=== PATIENT | female | born 1980 | race Caucasian/White ===

== ENCOUNTER 2018-01-13 22:55 | Emergency (ER) | payer OTHER ==
[~2018-01-13] VITALS: Ht 162.6 cm; Wt 88.9 kg
[~2018-01-13 22:55] MED LIST: DIAZ2 PO; NORC7.5T PO; ORPH100T PO
[2018-01-13 23:02] VITALS: BP 137/62; PULSE 115; RESP 18; TEMP 100.5; O2SAT 93
--- NOTE | 2018-01-14 00:40 | PD ---
HPI Chief Complaint: Cold / Flu Symptoms Time Seen by Provider: 00:33 Travel History International Travel<30 days: No Contact w/Intl Traveler<30days: No Traveled to known affect area: No History of Present Illness HPI The patient is a 37-year-old female that complains of fever and congestion, sore throat, cough, global headache, myalgias since afternoon, over 2 days. Her main complaints are now the headache and the cough. The myalgias are slightly subsiding. She has had a fever at home but never took her temperature. Her temperature here is 100.5. She does not smoke. She teaches school at [employer] Past Medical History Diminished Hearing: No Tetanus Vaccination: Unknown Influenza Vaccination: No ?: Not Past Surgical History Oral Surgery: Yes (WISDOM TEETH) Social History Alcohol Use: Yes (OCC) Tobacco Use: No Substance Use: No Allergies-Medications (Allergen,Severity, Reaction): Coded Allergies: No Known Allergies (Unverified , 10/07/15) Reported Meds & Prescriptions Reported Meds & Active Scripts Active No Active Prescriptions or Reported Medications Review of Systems Except as stated in HPI: all other systems reviewed are Neg Physical Exam Narrative GENERAL: Well-nourished, well-developed patient in no respiratory distress. Her vital signs show temperature 100.5 with heart rate of 115 but the rest of the vital signs are normal. SKIN: Focused skin assessment warm/dry. HEAD: Normocephalic. EYES: No scleral icterus. No injection or drainage. NECK: Supple, trachea midline. No JVD or lymphadenopathy. CARDIOVASCULAR: Regular rate and rhythm without murmurs, gallops, or rubs. RESPIRATORY: Breath sounds equal bilaterally. No accessory muscle use. Lungs clear to auscultation bilaterally. GASTROINTESTINAL: Abdomen soft, non-tender, nondistended. MUSCULOSKELETAL: No cyanosis, or edema. BACK: Nontender without obvious deformity. No CVA tenderness. ENT: The tympanic membranes are clear and the throat shows no erythema, exudate nor abscess. Data Data Last Documented VS Vital Signs Date Time Temp Pulse Resp B/P (MAP) Pulse Ox O2 Delivery O2 Flow Rate FiO2 01/13/18 23:29 18 98 Room Air 01/13/18 23:02 100.5 115 137/62 (87) Orders Orders Influenzae A/B Antigen (01/14/18 00:34) [facility] Medical Decision Making Medical Screen Exam Complete: Yes Emergency Medical Condition: Yes Medical Record Reviewed: Yes Interpretation(s) The influenza A/B antigen is negative for flu a and flu B antigen. Differential Diagnosis Flu syndrome, nonspecific viral syndrome, strep pharyngitis, otitis media, pneumonia, bronchitis Narrative Course The patient appears to have a nonspecific viral syndrome. Her sore throat is resolving and the throat appears normal at this time. This is unlikely to be strep. There is no otitis media and her lungs are clear. Impression: Nonspecific viral syndrome Plan: The patient be given codeine-containing cough syrup as well as Percocet for her headache. She should not drink alcohol or drive on the Percocet. She is given a 5 day work excuse. She needs to increase her liquid intake. Diagnosis Primary Impression: Viral syndrome Additional Instructions: Continue to increase your liquid intake to make sure you stay well-hydrated. Do not drink alcohol or drive on the Percocet 5 or codeine-containing cough syrup. Follow-up next week with your primary care physician. Med/Other Pt SpecificInfo: Prescription(s) given Scripts Ibuprofen (Ibuprofen) 600 Mg Tab 600 MG PO TID, #33 TAB 0 Refills Prov: Danyel Lehman MD 01/14/18 Mflkljyftiijpfo-Mxkvgey-Ovlbhcrqrwl Liq (Guaifenesin DAC Liq) 30-10-100 Mg/5 Ml Soln 10 ML PO Q4H Y for COUGH AND/OR COLD SYMPTOMS, #1 BOTTLE 0 Refills Prov: Danyel Lehman MD 01/14/18 Oxycodone-Acetaminophen (Percocet) 5-325 mg Tab 1-2 TAB PO Q4H Y for PAIN, #15 TAB 0 Refills Prov: Danyel Lehman MD 01/14/18 Disposition: 01 DISCHARGE HOME Condition: Stable Danyel Lehman MD Jan 14, 2018 00:40
[2018-01-14] MEDS ORDERED: PERC5TAB12 PO (01:24)
[2018-01-14] MEDS ORDERED: GUAISOL PO (01:24)
[2018-01-14 01:27] VITALS: BP_SYST 126; BP_SYST 136; BP_DIAS 76; BP_DIAS 78
[2018-01-14] MEDS ORDERED: IBUP-232 PO (01:29)
[2018-01-14] MEDS ORDERED: guaiFENesin/CODEINE SYRUP 200 MG/20 MG/10 ML CUP PO ONE (02:00)
== END 2018-01-14 02:07 | disposition home or self-care (01) ==
LOC: PHED 22:55
DX: B34.9 Viral infection, unspecified (principal); R05 Cough; M79.1 Myalgia; R51 Headache; J02.9 Acute pharyngitis, unspecified
CPT/HCPCS: 87804; 99283